=== PATIENT | female | born 1980 | race Two or more races ===

== ENCOUNTER 2016-12-22 19:03 | Emergency (ER) | payer MEDICAID ==
[~2016-12-22 19:03] MED LIST: COMPAZINE10 MG PO; FERROUS GLUCON324 M1 PO; IRON 100 PLUS1 EACH PO; MECLIZINE HCL25 M3 PO; OMEPRAZOLE40 M2 PO; TYLENOL EXTRA500 M1 PO; VITAMIN D1000 UNI3 PO
[2016-12-22] MEDS ORDERED: ZANTAC 7575 M1 PO (19:45)
[2016-12-22 20:16] LABS: URINE BILIRUBIN NEGATIVE (NEG); URINE BLOOD MODERATE (NEG); URINE GLUCOSE (UA) NEGATIVE (NEG); URINE KETONE NEGATIVE (NEG); URINE LEUKOCYTE ESTERASE NEGATIVE (NEG); URINE NITRITE NEGATIVE (NEG); URINE PROTEIN NEGATIVE (NEG); URINE SPECIFIC GRAVITY 1.015 (1.003-1.030)
[2016-12-22 20:19] LABS: URINE APPEARANCE CLEAR; URINE COLOR YELLOW
[2016-12-22 20:26] LABS: URINE WBC 0 /[HPF] (0-5)
[2016-12-22] MEDS ORDERED: NAPROSYN500 M1 PO (23:31)
== END 2016-12-22 23:58 ==
LOC: EDMED 19:03
PROVIDERS: Family Medicine
DX: R10.32 Left lower quadrant pain (principal); R31.29 Other microscopic hematuria; Z86.2 Personal history of diseases of the blood and blood-forming organs and certain disorders involving the immune mechanism; Z79.899 Other long term (current) drug therapy